=== PATIENT | male | born 1980 | race Caucasian/White ===

== ENCOUNTER 2017-12-12 16:38 | Emergency (ER) | payer OTHER ==
[2017-12-12 16:52] VITALS: BP 118/93; PULSE 54; RESP 16; TEMP 98.4; O2SAT 97
--- NOTE | 2017-12-12 16:56 | EDPHY ---
H & P Stated Complaint: L wrist pain Time Seen by Provider: 12/12/17 16:55 - Personal History Current Tetanus/Diphtheria Vaccine: Yes Current Tetanus Diphtheria and Acellular Pertussis (TDAP): Yes - Medical/Surgical History Hx Asthma: No Hx Chronic Respiratory Disease: No Hx Diabetes: No Hx Cardiac Disease: No Hx Renal Disease: No Hx Cirrhosis: No Hx Alcoholism: No Hx HIV/AIDS: No Hx Splenectomy or Spleen Trauma: No Other PMH: L wrist fx, R hand fx, - Social History Smoking Status: Never smoked Constitutional: Initial Vital Signs Temperature (C) 36.9 C 12/12/17 16:50 Heart Rate 54 L 12/12/17 16:50 Respiratory Rate 16 12/12/17 16:50 Blood Pressure 118/93 H 12/12/17 16:50 O2 Sat (%) 97 12/12/17 16:50 O2 Delivery Mode Room Air Allergies/Adverse Reactions: No Known Allergies Allergy (Unverified 12/12/17 16:49) Home Medications: Medication Instructions Recorded NK [No Known Home Meds] 12/12/17 Medical Decision Making - Diagnostics Imaging Results: Imaging Impressions Wrist X-Ray 12/12/17 16:55 Impression: Nothing acute identified. Imaging: Discussed imaging studies w/ call center dispatcher Radiologist, I viewed and interpreted images myself ED Course/Re-evaluation: CHIEF COMPLAINT: Left wrist pain HISTORY OF PRESENT ILLNESS: 37-year-old healthy gentleman who was with his son at school today at take your parent to . He was jumping on a trampoline type device and fell and braced his fall with his left wrist and fell on an outstretched left wrist. He denies any other injuries. He has pain at the distal aspect of his wrist. REVIEW OF SYSTEMS: A 10 point review of systems was performed and is negative with the exception of the elements mentioned in the history of present illness. PHYSICAL EXAM: HR, BP, O2 Sat, RR. Temp noted General Appearance: Alert, well hydrated, appropriate, and non-toxic appearing. Head: Atraumatic without scalp tenderness or obvious injury Eyes: Pupils equal, round, reactive to light and accommodation, EOMI, no trauma , no injection. Ears: Clear bilaterally, no perforation, normal landmarks Nose: Atraumatic, no rhinorrhea, clear. Throat: There is no erythema or exudates, no lesions, normal tonsils, mucus membranes moist. Neck: Supple, 2+ carotid upstroke, nontender, no lymphadenopathy. Respiratory: No retractions, no distress, no wheezes, and no accessory muscle use. Lungs are clear to auscultation bilaterally. Cardiovascular: Regular rate and rhythm, no murmurs, rubs, or gallops. Bilateral carotid, radial, dorsalis pedis, and posterior tibial pulses intact. Good capillary refill all extremities. Gastrointestinal: Abdomen is soft, nontender, non-distended, no masses, no rebound, no guarding, no peritoneal signs. Musculoskeletal: Pain with range of motion of the left wrist. No anatomical snuffbox pain. No pain on axial thumb loading. No evidence of obvious fracture. No lacerations. Neurovascularly intact. Otherwise, Normal active ROM of all extremities, atraumatic. Neurological: Alert, appropriate, and interactive. The patient has normal DTRs and non-focal cranial nerves, motor, sensory, and cerebellar exam. Skin: No rashes, good turgor, no nodules on palpation. Past medical history: he did have a prior wrist fracture on the left but did not require surgery Past surgical history: Noncontributory Family history: Noncontributory Social history: , employed, does not abuse tobacco drugs or alcohol DIAGNOSTICS/PROCEDURES/CRITICAL CARE TIME: Study: Three views of the left wrist Indication: Trauma Results: After viewing the images myself on the PACS system. My interpretation of the images is old radius fracture, nothing acute. The radiologist interpretation agrees. I have discussed the above x-rays with the radiologist. DIFFERENTIAL DIAGNOSIS: Includes but is not limited to: Wrist fracture, scaphoid injury, finger injury, soft tissue injury, sprain, strain. MEDICAL DECISION MAKING: X-ray negative for acute fracture. No evidence of compartment syndrome or joint instability. No visible trauma. Patient will be discharged in velcro splint with standard wrist sprain care and follow up instructions. Return precautions discussed. Departure - Departure Disposition: Home, Routine, Self-Care Clinical Impression: Left wrist sprain Qualifiers: Encounter type: initial encounter Qualified Code(s): S63.502A - Unspecified sprain of left wrist, initial encounter Condition: Good Instructions: Wrist Sprain (ED) Additional Instructions: 1. Use Tylenol and ibuprofen as directed on the packaging as needed for pain and swelling over the next few days. 2. Apply ice to sore areas. Expect to feel more sore tomorrow. 3. Wear Velcro splint for comfort and support over the next several days. Okay to take off to shower. 4. Slowly advance activity and movement of your wrist. 5. Follow up with orthopedist for unimproved symptoms over the next 1-2 weeks. 6. Return to the ED for severe pain, dramatic increase in swelling, weakness or numbness in your hand, or other worsening of condition. Referrals: LIGIA CORDOVA [Primary Care Provider] - As per Instructions Yung Maxwell MD [Medical Doctor] - As per Instructions
== END 2017-12-12 17:35 | disposition home or self-care (01) ==
DX: S63.502A Unspecified sprain of left wrist, initial encounter (principal); W18.39XA Other fall on same level, initial encounter; Y93.39 Activity, other involving climbing, rappelling and jumping off
CPT/HCPCS: L3908